=== PATIENT | male | born 1950 | race Caucasian/White ===

== ENCOUNTER 2021-08-17 17:39 | Inpatient (IN) | payer MEDICARE ==
[~2021-08-17] VITALS: Ht 172 cm; Wt 91.0 kg
--- NOTE | 2021-08-17 17:54 | ED General ---
General Chief Complaint: Respiratory Problems Stated Complaint: SOB Source of Information: Patient, EMS History of Present Illness Date Seen by Provider: Aug 17, 2021 Time Seen by Provider: 17:39 Initial Comments 70-year-old male presenting by EMS from home with complaints of feeling off balance when he tries to get up. He also has been more short of breath than usual. He has swelling in his legs which is new for him. He denies having fever or chills. He states he has not been coughing more than usual. He states that this is all been worsening in the last few days. He has not seen his primary care provider, Dr. Perkins, about any of the symptoms. Timing/Duration: 2-3 Days Severity: Moderate Modifying Factors: worse with Movement Associated Systoms: No Chest Pain, No Cough, No Diaphoresis, No Fever/Chills, No Headaches, No Loss of Appetite; Malaise; No Nausea/Vomiting, No Rash, No Seizure; Shortness of Air; No Syncope, No Weakness Allergies and Home Medications Allergies Coded Allergies: No Known Drug Allergies (Unverified , 10/22/17) Patient Home Medication List Home Medication List Reviewed: Yes Review of Systems Review of Systems Constitutional: No chills, No fever; malaise, weakness EENTM: no symptoms reported Respiratory: short of breath; No stridor, No wheezing Cardiovascular: see HPI; No chest pain; edema Gastrointestinal: no symptoms reported Genitourinary: decreased output Musculoskeletal: no symptoms reported Skin: No rash Psychiatric/Neurological: Weakness Hematologic/Lymphatic: Denies Blood Clots Past Vnauvwp-Xrrapo-Ulxfrq Hx Patient Social History Tobacco Use?: Yes Tobacco type used: Cigarettes Smoking Status: Current Everyday Smoker Use of E-Cig and/or Vaping dev: No Substance use?: No Alcohol Use?: No Past Medical History Surgery/Hospitalization HX: Hypertension, hypercholesterolemia, diabetes insulin-dependent, diverticulitis Surgeries: Yes Abdominal, Nephrectomy (1 kidney removed 2019 for renal cell carcinoma) Cancer: Yes Kidney Did You Recieve Any Treatments: Yes What Type of Treatment Did You: Surgical Intervention (Nephrectomy 2019) Physical Exam Vital Signs Vital Signs - First Documented 08/17/21 19:00 O2 Flow Rate 2.00 Capillary Refill : Height, Weight, BMI Height: 5'9.00" Weight: 206lbs. 0.0oz. 93.171927mv; 30.4 BMI Method: General Appearance: No Apparent Distress, Chronically ill HEENT: PERRL/EOMI, Pharynx Normal Neck: Full Range of Motion, Normal Inspection, Non Tender, Supple Respiratory: Chest Non Tender, No Accessory Muscle Use, No Respiratory Distress, Decreased Breath Sounds Cardiovascular: Regular Rate, Rhythm, Normal Peripheral Pulses Gastrointestinal: Normal Bowel Sounds, No Pulsatile Mass, Non Tender, Soft Rectal: Deferred Extremity: Normal Capillary Refill, No Calf Tenderness, Pedal Edema (1+ pitting edema to bilateral lower extremities up to his knees) Neurologic/Psychiatric: Alert, Oriented x3, reeler operator II-XII Norm as Tested Skin: Warm/Dry Focused Exam Lactate Level 08/17/21 18:50: Lactic Acid Level 1.02 Lactic Acid Level Laboratory Tests Test 08/17/21 18:50 Lactic Acid Level 1.02 MMOL/L (0.50-2.00) Progress/Results/Core Measures Suspected Sepsis SIRS Temperature: Pulse: Respiratory Rate: Laboratory Tests 08/17/21 17:43: White Blood Count 12.8H Blood Pressure / Mean: 08/17/21 18:50: Lactic Acid Level 1.02 Laboratory Tests 08/17/21 17:43: Creatinine 1.82H, INR Comment 1.1, Platelet Count 160, Total Bilirubin 0.4 08/17/21 19:25: Creatinine 1.78H Results/Orders Lab Results Laboratory Tests Test 08/17/21 17:43 08/17/21 18:50 08/17/21 19:25 Range/Units White Blood Count 12.8 H 4.3-11.0 10^3/uL Red Blood Count 5.12 4.30-5.52 10^6/uL Hemoglobin 15.4 13.3-17.7 g/dL Hematocrit 51 40-54 % Mean Corpuscular Volume 99 80-99 fL Mean Corpuscular Hemoglobin 30 25-34 pg Mean Corpuscular Hemoglobin Concent 30 L 32-36 g/dL Red Cell Distribution Width 13.7 10.0-14.5 % Platelet Count 160 130-400 10^3/uL Mean Platelet Volume 11.1 9.0-12.2 fL Immature Granulocyte % (Auto) 0 % Neutrophils (%) (Auto) 79 H 42-75 % Lymphocytes (%) (Auto) 11 L 12-44 % Monocytes (%) (Auto) 9 0-12 % Eosinophils (%) (Auto) 0 0-10 % Basophils (%) (Auto) 0 0-10 % Neutrophils # (Auto) 10.1 H 1.8-7.8 10^3/uL Lymphocytes # (Auto) 1.4 1.0-4.0 10^3/uL Monocytes # (Auto) 1.2 H 0.0-1.0 10^3/uL Eosinophils # (Auto) 0.0 0.0-0.3 10^3/uL Basophils # (Auto) 0.0 0.0-0.1 10^3/uL Immature Granulocyte # (Auto) 0.1 0.0-0.1 10^3/uL Prothrombin Time 14.6 12.2-14.7 SEC INR Comment 1.1 0.8-1.4 Activated Partial Thromboplast Time 30 24-35 SEC Sodium Level 143 143 135-145 MMOL/L Potassium Level 6.9 *H 6.7 *H 3.6-5.0 MMOL/L Chloride Level 108 H 107 98-107 MMOL/L Carbon Dioxide Level 26 26 21-32 MMOL/L Anion Gap 9 10 5-14 MMOL/L Blood Urea Nitrogen 52 H 49 H 7-18 MG/DL Creatinine 1.82 H 1.78 H 0.60-1.30 MG/DL Estimat Glomerular Filtration Rate 40 41 BUN/Creatinine Ratio 29 28 Glucose Level 153 H 126 H 70-105 MG/DL Calcium Level 8.5 8.7 8.5-10.1 MG/DL Corrected Calcium 8.7 8.5-10.1 MG/DL Magnesium Level 1.9 1.6-2.4 MG/DL Total Bilirubin 0.4 0.1-1.0 MG/DL Aspartate Amino Transf (AST/SGOT) 17 5-34 U/L Alanine Aminotransferase (ALT/SGPT) 20 0-55 U/L Alkaline Phosphatase 61 40-136 U/L Myoglobin 249.7 H 10.0-92.0 NG/ML Troponin I 0.44 *H <0.30 NG/ML Pro-B-Type Natriuretic Peptide 03731.0 H <75.0 PG/ML Total Protein 6.1 L 6.4-8.2 GM/DL Albumin 3.7 3.2-4.5 GM/DL Lipase 61 8-78 U/L Lactic Acid Level 1.02 0.50-2.00 MMOL/L My Orders Orders - SUMIT FINLEY MD Cbc With Automated Diff (08/17/21 17:50) Magnesium (08/17/21 17:50) Chest 1 View Ap/Pa Only (08/17/21 17:50) Ekg Tracing (08/17/21 17:50) Comprehensive Metabolic Panel (08/17/21 17:50) Myoglobin Serum (08/17/21 17:50) Protime With Inr (08/17/21 17:50) Partial Thromboplastin Time (08/17/21 17:50) O2 (08/17/21 17:50) Monitor-Rhythm Ecg Trace Only (08/17/21 17:50) Ed Iv/Invasive Line Start (08/17/21 17:50) Lipase (08/17/21 17:50) Troponin I Fs (08/17/21 17:50) Probnp Fs (08/17/21 17:50) Blood Culture (08/17/21 18:39) Basic Metabolic Panel (08/17/21 18:39) Lactic Acid Analyzer (08/17/21 18:39) Furosemide Injection (Lasix Injection) (08/17/21 18:39) Aspirin Chewable Tablet (Baby Aspirin Ch (08/17/21 18:39) Enoxaparin Injection (Lovenox Injection) (08/17/21 18:39) Ceftriaxone 1 Gm Pre-Mix (Rocephin 1 Gm (08/17/21 18:41) Azithromycin Tablet (Zithromax Tablet) (08/17/21 18:41) Furosemide Injection (Lasix Injection) (08/17/21 18:54) Vital Signs/I&O 08/17/21 08/17/21 08/17/21 08/17/21 17:50 17:50 19:00 19:15 Temp 36.7 Pulse 75 77 75 Resp 18 15 15 B/P (MAP) 146/73 (97) 161/75 111/75 Pulse Ox 91 93 94 O2 Delivery Nasal Cannula Nasal Cannula Nasal Cannula Nasal Cannula O2 Flow Rate 2.00 2.00 Capillary Refill : Progress Note #1: Progress Note Check basic labs and cardiac enzymes as well as chest x-ray and electrocardiogram. Evaluate for acute congestive heart failure, myocardial infarction, pneumonia, pleural effusion, lung mass. Progress Note #2: Progress Note Electrocardiogram has right bundle branch block and sinus rhythm but no acute ST elevation. There is no prior tracing for comparison. His chest x-ray shows a pleural effusion with infiltrate in the lung base. On his labs his white blood cell count was slightly elevated to 12.8 and his chemistry showed hyperkalemia up to 6.9, creatinine of 1.82, troponin of 0.44. Will check with the on-call provider for [facility] about admission and treatment for the renal insufficiency as well as hyperkalemia. The elevated troponin could be for a non-STEMI or it may be related to stress on his heart from the pleural effusion and infiltrate. Progress Note #3: Progress Note Discussed with Dr. Shetty for the [facility]. Will admit to the cardiac stepdown unit with orders for serial cardiac enzymes and consult of Dr. Flaherty with cardiology. We will try to recheck his metabolic profile since he had hemolysis on his potassium and is not showing signs of peaked T waves on his EKG. Since his chest x-ray showed infiltrate with effusion will cover with Rocephin and Zithromax for community-acquired pneumonia. Lactic acid was normal at 1. Discussed with Dr. Flaherty for cardiology and he recommended giving Lovenox as well as the aspirin. He also recommended patient get a echocardiogram on arrival to [facility]. Do serial troponins. When updating the patient about plan and results he asked about his toes. He stated that he had really bad long toenails that were really thick and yellow. When his feet were examined he did have erythematous rash to both feet consistent with a fungal infection of the skin as well as thickened onychomycotic toenails. Advised to have the patient check with the hospital once he is at [place] to see if they have podiatry or other services that kurtis mays help with his feet. ECG Initial ECG Impression Date: Aug 17, 2021 Initial ECG Impression Time: 18:05 Initial ECG Rate: 72 Initial ECG Rhythm: Normal Sinus Initial ECG Comparisson: No Previous ECG Available Comment Sinus rhythm with a heart rate of 72 bpm. Right axis deviation. Right bundle branch block. [place] interval 178 ms. QT interval 400 ms with a QTc interval 425 ms. There is no acute ST elevation. There is no prior tracing available for comparison. Diagnostic Imaging Diagonstic Imaging: Xray Plain Films/CT/US/NM/MRI: chest Comments [facility]. [place], [place] NAME: STEFANY GARCIA [facility] REC#: [id number] PT STATUS: REG ER : 1950 PHYSICIAN: SUMIT FINLEY MD ADMIT DATE: 08/17/21/ER FS Draft Date of Exam:08/17/21 CHEST 1 VIEW AP/PA ONLY INDICATION: Cough and shortness of breath. EXAMINATION: Chest, 08/17/2021. FINDINGS: There is a left pleural effusion. There is underlying atelectasis versus infiltrate. The heart is prominent. Pulmonary vasculature unremarkable. Left lung clear. IMPRESSION: 1. Right base infiltrate with adjacent pleural effusion. 2. Cardiomegaly. Dictated on workstation # [id number] Dict: 08/17/211801 Trans: 08/17/211804 [facility] [id number] Interpreted by: DARION FONTANEZ MD Electronically signed by: Reviewed: Reviewed by Me Departure Communication (Admissions) Time/Spoke to Admitting Phy: 18:[address] Shetty for the [facility] service. Admit to cardiac stepdown and do serial cardiac enzymes as well as consult Dr. Flaherty with cardiology. Time/Spoke to Consulting Phy: 18:[address] Flaherty from cardiology service. We will give Lovenox in addition to aspirin and obtain an echocardiogram on arrival to [place]. Lasix 80 mg IV x 1. Impression Primary Impression: Pleural effusion, right Additional Impressions: Right lower lobe pulmonary infiltrate Hyperkalemia Renal insufficiency Elevated troponin I level Onychomycosis Infection, fungal, right foot Infection, fungal, left foot Disposition: 30 STILL A PATIENT Condition: Stable (ERASED) Admissions Decision to Admit Reason: Admit from ER (General) Decision to Admit/Date: Aug 17, 2021 Time/Decision to Admit Time: 18:32 Departure-Patient Inst. Referrals: NO,LOCAL PHYSICIAN (PCP/Family) Primary Care Physician SUMIT FINLEY MD Aug 17, 2021 17:54
[2021-08-17 17:59] LABS: BASOPHILS % (AUTO) 0 % (0-10); EOSINOPHILS % (AUTO) 0 % (0-10); HEMATOCRIT 51 % (40-54); HEMOGLOBIN 15.4 g/dL (13.3-17.7); LYMPHOCYTES # (AUTO) 1.4 10^3/uL (1.0-4.0); LYMPHOCYTES % (AUTO) 11 % (12-44); MEAN CORPUSCULAR HEMOGLOBIN 30 pg (25-34); MEAN CORPUSCULAR HGB CONC 30 g/dL (32-36); MEAN CORPUSCULAR VOLUME 99 fL (80-99); MEAN PLATELET VOLUME 11.1 fL (9.0-12.2); MONOCYTES # (AUTO) 1.2 10^3/uL (0.0-1.0); MONOCYTES % (AUTO) 9 % (0-12); NEUTROPHILS # (AUTO) 10.1 10^3/uL (1.8-7.8); NEUTROPHILS % (AUTO) 79 % (42-75); PLATELET COUNT 160 10^3/uL (130-400); WHITE BLOOD COUNT 12.8 10^3/uL (4.3-11.0)
--- NOTE | 2021-08-17 18:05 | Diagnostic Imaging Report ---
INDICATION: Cough and shortness of breath. EXAMINATION: Chest, 08/17/2021. FINDINGS: There is a left pleural effusion. There is underlying atelectasis versus infiltrate. The heart is prominent. Pulmonary vasculature unremarkable. Left lung clear. IMPRESSION: 1. Right base infiltrate with adjacent pleural effusion. 2. Cardiomegaly. Dictated by: Dictated on workstation # [id number]
[2021-08-17 18:14] LABS: INR 1.1 (0.8-1.4); PROTHROMBIN TIME PATIENT 14.6 SEC (12.2-14.7)
[2021-08-17 18:16] LABS: CREATININE SERUM 1.82 MG/DL (0.60-1.30)
[2021-08-17 18:17] LABS: ALBUMIN 3.7 GM/DL (3.2-4.5); BILIRUBIN,TOTAL 0.4 MG/DL (0.1-1.0); CALCIUM 8.5 MG/DL (8.5-10.1); MAGNESIUM 1.9 MG/DL (1.6-2.4); TOTAL PROTEIN 6.1 GM/DL (6.4-8.2)
[2021-08-17 18:19] LABS: POTASSIUM 6.9 MMOL/L (3.6-5.0)
[2021-08-17] MEDS ORDERED: FUROSEMIDE 40 MG/4 ML INJ (LASIX) IVP STA (18:39)
[2021-08-17] MEDS ORDERED: ASPIRIN 81 MG CHEW (CHILDREN'S ASA) PO STA (18:39)
[2021-08-17] MEDS ORDERED: ENOXAPARIN 100 MG/1 ML (LOVENOX) SYR SC STA (18:39)
[2021-08-17] MEDS ORDERED: AZITHROMYCIN 250 MG TAB (ZITHROMAX) PO STA (18:41)
[2021-08-17] MEDS ORDERED: cefTRIAXone 1 GM PRE-MIX 50 ML IV STA (18:41)
[2021-08-17] MEDS ORDERED: FUROSEMIDE 40 MG/4 ML INJ (LASIX) ONE (18:54)
[2021-08-17 19:53] LABS: CALCIUM 8.7 MG/DL (8.5-10.1); CREATININE SERUM 1.78 MG/DL (0.60-1.30)
[2021-08-17 19:54] LABS: POTASSIUM 6.7 MMOL/L (3.6-5.0)
[2021-08-17 20:30] VITALS: BP 147/84
[2021-08-17 21:00] VITALS: BP 163/86
--- OUTSIDE RECORDS SUMMARY | 2021-08-17 21:33 | XMS REPORT | Clinical Summary ---
Author Author [facility] Organization [facility] Address Unknown Phone Unavailable Care Team Providers Care Associate Chemist Name Role Phone Self, Ricardo ESPOSITO PCP Kyler Asencio MD [phone] Source Comments Some departments are not documenting in the electronic medical record. If you d o not see the information that you expected, contact Release of Information in [facility] [employer] Information Management department at [phone] for further assistan ce in locating additional records.[facility] Allergies No known active allergies Medications End Date Status Medication Sig Dispensed Refills Start Date Active lovastatin(+) (MEVACOR) Take 20 mg by 0 20 mg tablet mouth at bedtime daily. Active lisinopril (PRINIVIL; Take 20 mg by 0 ZESTRIL) 20 mg tablet mouth every morning. Active aspirin EC 81 mg tablet Take 81 mg by 0 mouth daily. Take with food. Active polyethylene glycol 3350 Take 1 packet 12 each 3 (MIRALAX) 17 g packet by mouth 7 twice daily. Additional Information Patient taking differently: 17 g Oral TWO TIMES WEEKLY, Informant: Med List, Reported on 10/12/2017 Active lancets MISC Use 1 each as 300 each 11 directed four 7 times daily as needed. Diag: Diabetes mellitus type 2 Active insulin detemir(+) Inject 15 2 box 9 01 (LEVEMIR FLEXTOUCH) 100 Units under 7 unit/mL (3 mL) injection the skin at penIndications: type 2 bedtime diabetes mellitus daily. Indications: type 2 diabetes mellitus Additional Information Patient taking differently: 18 Units Subcutaneous AT BEDTIME DAILY, Indications: type 2 diabetes mellitus, Informant: Med List, Reported on 10/12/2017 Active insulin pen needles Use 1 each as 300 each 3 01/26 (disposable) (BD UF ELVA directed as 7 PEN NEEDLES) 32 gauge x Needed. Use " pen needle with insulin injections. Active pantoprazole DR Take 1 tablet 60 tablet 5 03/07/19 1 (PROTONIX) 40 mg tablet by mouth 8 twice daily. Take twice daily for 12 weeks then decrease to once daily. Additional Information Patient taking differently: 40 mg Oral DAILY, Take twice daily for 12 weeks then decrease to once daily., Informant: Med List, Reported on 10/12/2017 Active metFORMIN (GLUCOPHAGE) Take 1,000 mg 0 1,000 mg tablet by mouth twice daily with meals. Active traMADol (ULTRAM) 50 mg Take 100 mg 0 tablet by mouth 8 twice daily. Active ondansetron (ZOFRAN) 4 mg Take 1 tablet 4 tablet 0 tabletIndications: by mouth 8 Colostomy present ([facility]) every 4 hours as needed for Nausea or Vomiting. Active metoprolol XL (TOPROL XL) Take 25 mg by 0 25 mg extended release mouth daily. tablet Active oxyCODONE (ROXICODONE, Take one 40 tablet 0 OXY-IR) 5 mg tablet tablet to two 8 tablets by mouth every 6 hours as needed. Use in addition to Tylenol (acetaminophe n) for pain control and decrease use as pain improves. Active pantoprazole DR TAKE ONE 60 tablet 5 (PROTONIX) 40 mg tablet TABLET BY 8 MOUTH TWICE DAILY FOR 12 WEEKS THEN DECREASE TO ONCE DAILY Active Problems Problem Noted Date S/P colostomy takedown 10/30/2017 S/p nephrectomy 10/30/2017 Panlobular emphysema 10/30/2017 Current smoker 10/30/2017 History of home oxygen therapy 10/30/2017 Hypomagnesemia 10/30/2017 Colostomy present 10/01/2017 Overview: Formatting of this note might be differ ent from the original. Added automatically from request for prachi potts [id number] Gastric ulcer 03/08/2017 Overview: Formatting of this note might be differ ent from the original. Added automatically from request for prachi potts [id number] Acute respiratory failure with hypoxia 02/06/2017 Renal mass, right 01/28/2017 Overview: Formatting of this note might be differ ent from the original. Images from the original note were not included. 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 3.6 cm R anterior upper pole. CT CAP w/o evidence of metastatic disease. Creatinine wnl. Reviewed options as directed by guidelines above . -- 05/31/17: Stable right renal mass. He has not yet met with General Surgery -- 09/06/17: Ultrasound shows stable rig ht renal. He has had endoscopy in interim, but not met with General Surge ry. L ast Assessment & Plan: Formatting of this note might be differ ent from the original. Patient feels recovered from his colost anahi. His wound nearly completely healed. His renal mass is stable. Rev iewing old films, however, the mass is very endophytic. We discussed need for partial nephrectomy versus nephrectomy in the near future. Patien t agrees. We will need to determine general surgery plans and coordinate a surgery with them. -- Referral to Dr. Cervantes for determi nation of possibility of colostomy takedown -- Coordinate surgery with Dr. Cervantes for an open partial versus radical nephrectomy -- Make a [address] s can prior if Dr. Cervantes does not feel ready for colostomy takedown -- All questions answered HTN (hypertension) 01/28/2017 HLD (hyperlipidemia) 01/28/2017 Low back pain 01/28/2017 DDD (degenerative disc disease), cervical 01/28/2017 Gout 01/28/2017 DM (diabetes mellitus) 01/28/2017 Severe sepsis 01/28/2017 Lactic acidosis 01/28/2017 Abdominal pain 01/28/2017 Bowel wall thickening 01/28/2017 Overview: Formatting of this note might be differ ent from the original. Added automatically from request for prachi potts [id number] Pneumoperitoneum 01/28/2017 Overview: Formatting of this note might be differ ent from the original. Added automatically from request for prachi potts [id number] Intra-abdominal abscess 01/28/2017 Overview: Formatting of this note might be differ ent from the original. Added automatically from request for prachi potts [id number] Diverticulitis of colon with perforation 01/28/2017 Overview: Formatting of this note might be differ ent from the original. Added automatically from request for prachi potts [id number] PP (pneumoperitoneum) 01/28/2017 Overview: Formatting of this note might be differ ent from the original. Added automatically from request for prachi potts [id number] Resolved Problems Problem Noted Date Resolved Date Colostomy in place 10/01/2017 10/30/2017 Surgical History Surgery Date Site/Laterality Comments CERVICAL SPINE SURGERY disc removal FRACTURE SURGERY 02/26/1969 - Right arm 02/25/1970 ABDOMINAL EXPLORATION 10/30/2017 Abdomen/N/A EXPLORAT ORY LAPAROTOMY,LOW ANTERIOR RESECTION, SURGERY LYSIS OF ADHESIONS, FLEXIBL E SIGMOIDOSCOPY, MOBILIZATION OF SPLENIC FLEXURE, COLOS DI TAKEDOWN WITH COLECTOMY performed by Vikas Loera DO at [facility] OR/Periop Medical devices from this surgery are i n the Medical Devices section. NEPHRECTOMY 10/30/2017 Abdomen/Right RIGHT RADICAL NEPHRECTOMY performed by Kyler Asencio MD at [facility] OR/[facility] Medical devices from this surgery are i n the Medical Devices section. UPPER GASTROINTESTINAL 06/08/2017 N/A ESOPHAG OGASTRODUODENOSCOPY performed by KANDY Gao MD at ENDO/GI ABDOMINAL EXPLORATION 02/02/2017 N/A LAPAROTO MY EXPLORATORY, SIGMIOD COLECTOMY, OSTOMY SURGERY performed by Harshil Geiger MD at [facility] ABDOMINAL EXPLORATION 02/01/2017 Abdomen/N/A LAPAROTO MY EXPLORATORY, LYSIS OF ADHESIONS, REPAIR SURGERY OF COLOTOMY, NEGATIVE PRESS URE THERAPY performed by Kierra Stoll MD at [facility] UPPER GASTROINTESTINAL 01/31/2017 N/A ESOPHAG OGASTRODUODENOSCOPY performed by KANDY Bahena MD at ENDO/GI SIGMOIDOSCOPY 01/31/2017 N/A SIGMOIDOSCOPY B IOPSY performed by Reginald Bahena MD at [facility]O/GI UPPER GASTROINTESTINAL 01/31/2017 N/A ESOPHAG OGASTRODUODENOSCOPY BIOPSY performed by ENDOSCOPY Reginald Bahena MD at [facility] DO/GI Medical History Medical History Date Comments DM (diabetes mellitus) (HCC) HTN (hypertension) Gout Neuropathy feet Hyperlipidemia Diverticulitis Renal mass Arthritis hands, back Family History Medical History Relation Name Comments Stroke Brother Diabetes Mother Relation Name Status Comments Brother Alive Father Mother Social History Date Tobacco Use Types Packs/Day Years Used Quit: 01/28/2017 Current Every Day Smoker Cigarettes 0.5 45 Smokeless Tobacco: Snuff Current User Comments Alcohol Use Standard Drinks/Week No 0 (1 standard drink = 0.6 o z pure alcohol) Sex Assigned at Date Recorded Not on file Obstetrics History Last Filed Vital Signs Reading Time Taken Comments Vital Sign 170/80 12/17/2017 8:23 AM CDT Blood Pressure 73 12/17/2017 8:23 AM CDT Pulse 36.7 C (98 F) 12/17/2017 8:23 AM CDT Temperature 18 12/17/2017 8:23 AM CDT Respiratory Rate 96% 12/17/2017 8:23 AM CDT Oxygen Saturation - - Inhaled Oxygen Concentration 87.5 kg (193 lb) 12/17/2017 8:23 AM CDT Weight 175.3 cm (5' 9") 12/17/2017 8:23 AM CDT Height 28.5 12/17/2017 8:23 AM CDT Body Mass Index Plan of Treatment Health Maintenance Due Date Last Done Comments COVID-19 VACCINE (#1) 09/21/1956 DTAP/TDAP VACCINES (1 - 09/21/1969 Tdap) HEPATITIS C SCREENING 09/21/1969 PHYSICAL (COMPREHENSIVE) 09/21/1969 EXAM SHINGLES RECOMBINANT 09/21/2001 VACCINE (1 of 2) ABDOMINAL AORTIC ANEURYSM 09/21/2016 SCREENING PNEUMONIA (PPSV23) 09/21/2016 VACCINE (1 - PCV) INFLUENZA VACCINE 12/27/2021 01/31/2016 COLORECTAL CANCER 01/31/2027 01/31/2017 SCREENING Medical Devices Device Identifier Shelf Expiration Date Model / Serial / L ot Implanted Type Area Manufactur er 05/26/2020 5086-02 / [id number] / [id number] Barrier Adhesion 3x5in Procedure N/A: Abdomen GENZ YME Pack Bioresorbable Membrane - [id number] Implanted: Qty: 1 on 10/30/2017 by Vikas Cervantes DO at [facility] Results Not on filefrom Last 3 Months Advance Directives Patient [employer] [place] Explanation Type Date Recorded Advance 06/08/2017 10:00 AM Directive/DPOA Advance 02/12/2017 12:00 AM Directive/DPOA Date Inactivated Comments Code Status Date Activated 11/05/2017 7:21 PM Full Code 10/30/2017 3:24 PM Provider has discussed Code Status No, discussion no t w/Patient or Family? necessary based on Dx 02/12/2017 4:56 PM Full Code 01/28/2017 2:19 PM Provider has discussed Code Status Yes w/Patient or Family? Care Teams Start Date End Date Associate Chemist Relationship Specialty 01/30/17 SelfRicardo MD PCP - General Family Medicine 09/12/17 Kyler Asencio MD Attending MD Urology [address] [facility] [address] [place] [address]
[2021-08-17 21:58] LABS: CALCIUM 8.6 MG/DL (8.5-10.1)
[2021-08-17 22:00] VITALS: BP 128/66
[2021-08-17 22:02] LABS: CREATININE SERUM 1.9 MG/DL (0.60-1.30)
[2021-08-17 22:05] LABS: POTASSIUM 6.5 MMOL/L (3.6-5.0)
[2021-08-17] MEDS ORDERED: DEXTROSE 10% IV SOLUTION 1,000 ML IV SCH (22:15)
[2021-08-17] MEDS ORDERED: DEXTROSE 50% 50 ML (IMS) SYR IV ONE (22:15)
[2021-08-17] MEDS ORDERED: inSUlin (REGULAR) HUMAN 1 UNIT/0.01 ML (CHARGE PER UNIT) IV ONE (22:15)
[2021-08-17] MEDS ORDERED: ONDANSETRON 4 MG/2 ML (SDV) Z0FRAN IVP PRN (22:30)
[2021-08-17] MEDS ORDERED: CATHETER FLUSH 10 ML SYR IVP PRN (22:30)
[2021-08-17 23:00] VITALS: BP 130/77
[2021-08-18] VITALS (10 sets, daily range): BP systolic 115–139; BP diastolic 24–77
[2021-08-18 00:21] LABS: CALCIUM 8.3 MG/DL (8.5-10.1)
[2021-08-18 00:25] LABS: CREATININE SERUM 1.84 MG/DL (0.60-1.30)
[2021-08-18] MEDS ORDERED: RT-ALBUTEROL SULF 2.5 MG/3 ML PRE-MIX VIAL INH PRN (00:30)
[2021-08-18 05:11] LABS: CALCIUM 8.4 MG/DL (8.5-10.1)
[2021-08-18] MEDS: RT-ALBUTEROL SULF 2.5 MG/3 ML PRE-MIX VIAL INH SCH ×6 (05:12→23:28)
[2021-08-18 05:15] LABS: CREATININE SERUM 1.74 MG/DL (0.60-1.30)
[2021-08-18] MEDS: CATHETER FLUSH 10 ML SYR IVP SCH ×2 (05:26→15:28)
[2021-08-18 05:40] LABS: POTASSIUM 6.6 MMOL/L (3.6-5.0)
[2021-08-18] MEDS ORDERED: FUROSEMIDE 40 MG/4 ML INJ (LASIX) IVP ONE (05:45)
[2021-08-18] MEDS ORDERED: inSUlin (REGULAR) HUMAN 1 UNIT/0.01 ML (CHARGE PER UNIT) IV ONE (05:45)
[2021-08-18] MEDS ORDERED: DEXTROSE 10% IV SOLUTION 1,000 ML IV SCH (05:45)
[2021-08-18] MEDS ORDERED: DEXTROSE 50% 50 ML (IMS) SYR IV ONE (05:45)
[2021-08-18] MEDS ORDERED: SODIUM POLYSTYRENE POWDER 15 GM BOTTLE PO ONE (06:15)
[2021-08-18] MEDS: FUROSEMIDE 40 MG/4 ML INJ (LASIX) IVP SCH ×2 (06:43→17:58)
[2021-08-18 08:15] LABS: CALCIUM 8.5 MG/DL (8.5-10.1); CREATININE SERUM 1.61 MG/DL (0.60-1.30); POTASSIUM 6.1 MMOL/L (3.6-5.0)
--- NOTE | 2021-08-18 09:05 | Consultation-Cardiology ---
HPI-Cardiology Cardiology Consultation Date of Consultation 08/18/21 Date of Admission Time Seen by Provider: 08:00 Indication: Shortness of breath HPI 70-year-old gentleman with history of chronic renal insufficiency, hypertension, has been having unsteady gait and increasing shortness of breath and pedal edema which has been worsening. Patient reporting dyspnea on exertion which is progressive to the point that he is having dyspnea on doing basic daily activity. He denies any chest pain. No palpitation. No syncope or near syncopal episodes. Patient reported that he had history of nephrectomy and history of abdominal surgery in the past. Home Medications & Allergies Allergies: Coded Allergies: No Known Drug Allergies (Unverified , 10/22/17) Home Medication List Reviewed: Yes [id number]-Dvsrfz Hx Patient Social History Smoking Status: Current Everyday Smoker Have you traveled recently?: No Alcohol Use?: No Past Medical History Discussed below Family Medical History Family Medical Hx Noncontributory Review of Systems-General Review of Systems Constitutional: see HPI; No chills, No fever; malaise, weakness EENTM: see HPI, no symptoms reported Respiratory: see HPI; No cough; dyspnea on exertion; No hemoptysis; orthopnea; No phlegm; short of breath; No stridor, No wheezing, No other Cardiovascular: see HPI; No chest pain; edema; No Hx of Intervention, No palpitations, No syncope, No vascular heart diseas, No other Gastrointestinal: no symptoms reported, see HPI Genitourinary: see HPI, decreased output Musculoskeletal: no symptoms reported, see HPI Skin: see HPI; No rash Psychiatric/Neurological: See HPI, Weakness Reviewed Test Results Reviewed Test Results Lab Laboratory Tests Test 08/17/21 17:43 08/17/21 18:50 08/17/21 19:25 08/17/21 21:37 Range/Units White Blood Count 12.8 H 4.3-11.0 10^3/uL Red Blood Count 5.12 4.30-5.52 10^6/uL Hemoglobin 15.4 13.3-17.7 g/dL Hematocrit 51 40-54 % Mean Corpuscular Volume 99 80-99 fL Mean Corpuscular Hemoglobin 30 25-34 pg Mean Corpuscular Hemoglobin Concent 30 L 32-36 g/dL Red Cell Distribution Width 13.7 10.0-14.5 % Platelet Count 160 130-400 10^3/uL Mean Platelet Volume 11.1 9.0-12.2 fL Immature Granulocyte % (Auto) 0 % Neutrophils (%) (Auto) 79 H 42-75 % Lymphocytes (%) (Auto) 11 L 12-44 % Monocytes (%) (Auto) 9 0-12 % Eosinophils (%) (Auto) 0 0-10 % Basophils (%) (Auto) 0 0-10 % Neutrophils # (Auto) 10.1 H 1.8-7.8 10^3/uL Lymphocytes # (Auto) 1.4 1.0-4.0 10^3/uL Monocytes # (Auto) 1.2 H 0.0-1.0 10^3/uL Eosinophils # (Auto) 0.0 0.0-0.3 10^3/uL Basophils # (Auto) 0.0 0.0-0.1 10^3/uL Immature Granulocyte # (Auto) 0.1 0.0-0.1 10^3/uL Prothrombin Time 14.6 12.2-14.7 SEC INR Comment 1.1 0.8-1.4 Activated Partial Thromboplast Time 30 24-35 SEC Sodium Level 143 143 146 H 135-145 MMOL/L Potassium Level 6.9 *H 6.7 *H 6.5 *H 3.6-5.0 MMOL/L Chloride Level 108 H 107 107 98-107 MMOL/L Carbon Dioxide Level 26 26 27 21-32 MMOL/L Anion Gap 9 10 12 5-14 MMOL/L Blood Urea Nitrogen 52 H 49 H 49 H 7-18 MG/DL Creatinine 1.82 H 1.78 H 1.90 H 0.60-1.30 MG/DL Estimat Glomerular Filtration Rate 40 41 38 BUN/Creatinine Ratio 29 28 26 Glucose Level 153 H 126 H 121 H 70-105 MG/DL Calcium Level 8.5 8.7 8.6 8.5-10.1 MG/DL Corrected Calcium 8.7 8.5-10.1 MG/DL Magnesium Level 1.9 1.6-2.4 MG/DL Total Bilirubin 0.4 0.1-1.0 MG/DL Aspartate Amino Transf (AST/SGOT) 17 5-34 U/L Alanine Aminotransferase (ALT/SGPT) 20 0-55 U/L Alkaline Phosphatase 61 40-136 U/L Myoglobin 249.7 H 10.0-92.0 NG/ML Troponin I 0.44 *H 0.359 *H <0.028 NG/ML Pro-B-Type Natriuretic Peptide 29423.0 H <75.0 PG/ML Total Protein 6.1 L 6.4-8.2 GM/DL Albumin 3.7 3.2-4.5 GM/DL Lipase 61 8-78 U/L Lactic Acid Level 1.02 0.50-2.00 MMOL/L Test 08/17/21 22:02 08/17/21 23:16 08/17/21 23:48 08/18/21 00:03 Range/Units Glucometer 242 H 182 H 133 H 70-110 MG/DL Sodium Level 146 H 135-145 MMOL/L Potassium Level 6.0 H 3.6-5.0 MMOL/L Chloride Level 108 H 98-107 MMOL/L Carbon Dioxide Level 27 21-32 MMOL/L Anion Gap 11 5-14 MMOL/L Blood Urea Nitrogen 48 H 7-18 MG/DL Creatinine 1.84 H 0.60-1.30 MG/DL Estimat Glomerular Filtration Rate 39 BUN/Creatinine Ratio 26 Glucose Level 136 H 70-105 MG/DL Calcium Level 8.3 L 8.5-10.1 MG/DL Troponin I 0.322 *H <0.028 NG/ML Test 08/18/21 01:01 08/18/21 03:09 08/18/21 03:50 08/18/21 04:39 Range/Units Glucometer 127 H 145 H 127 H 70-110 MG/DL Sodium Level 147 H 135-145 MMOL/L Potassium Level 6.6 *H 3.6-5.0 MMOL/L Chloride Level 109 H 98-107 MMOL/L Carbon Dioxide Level 24 21-32 MMOL/L Anion Gap 14 5-14 MMOL/L Blood Urea Nitrogen 44 H 7-18 MG/DL Creatinine 1.74 H 0.60-1.30 MG/DL Estimat Glomerular Filtration Rate 42 BUN/Creatinine Ratio 25 Glucose Level 122 H 70-105 MG/DL Calcium Level 8.4 L 8.5-10.1 MG/DL Troponin I 0.259 H <0.028 NG/ML Triglycerides Level 98 <150 MG/DL Cholesterol Level 94 < 200 MG/DL LDL Cholesterol Direct 45 1-129 MG/DL VLDL Cholesterol 20 5-40 MG/DL HDL Cholesterol 28 L 40-60 MG/DL Test 08/18/21 05:28 08/18/21 06:04 08/18/21 06:59 08/18/21 07:39 Range/Units Glucometer 126 H 126 H 133 H 70-110 MG/DL Sodium Level 149 H 135-145 MMOL/L Potassium Level 6.1 H 3.6-5.0 MMOL/L Chloride Level 107 98-107 MMOL/L Carbon Dioxide Level 29 21-32 MMOL/L Anion Gap 13 5-14 MMOL/L Blood Urea Nitrogen 44 H 7-18 MG/DL Creatinine 1.61 H 0.60-1.30 MG/DL Estimat Glomerular Filtration Rate 46 BUN/Creatinine Ratio 27 Glucose Level 95 70-105 MG/DL Calcium Level 8.5 8.5-10.1 MG/DL B-Type Natriuretic Peptide 2178.7 H <100.0 PG/ML Physical Exam Physical Exam Vital Signs Vital Signs - First Documented 08/17/21 19:00 O2 Flow Rate 2.00 Capillary Refill : Less Than 3 Seconds Height, Weight, BMI Height: 5'9.00" Weight: 206lbs. 0.0oz. [id number]; 30.75 BMI Method: General Appearance: No Apparent Distress, Chronically ill HEENT: PERRL/EOMI, Pharynx Normal Neck: Full Range of Motion, Normal Inspection, Non Tender, Supple Respiratory: Chest Non Tender, No Accessory Muscle Use, No Respiratory Distress, Crackles, Decreased Breath Sounds Cardiovascular: Regular Rate, Rhythm, Normal Peripheral Pulses Gastrointestinal: Normal Bowel Sounds, No Pulsatile Mass, Non Tender, Soft Rectal: Deferred Extremity: Normal Capillary Refill, No Calf Tenderness, Pedal Edema (1+ pitting edema to bilateral lower extremities up to his knees) Neurologic/Psychiatric: Alert, Oriented x3, combination technician II-XII Norm as Tested Skin: Warm/Dry A/P-Cardiology Admission Diagnosis Congestive heart failure, acute left ventricular systolic dysfunction Hypertension Diabetes mellitus Acute renal insufficiency Assessment/Plan Congestive heart failure, acute left ventricular systolic dysfunction, unknown etiology. I will evaluate 2D echocardiogram, started on aggressive diuresis. Continue to monitor closely Hyperkalemia, probably secondary to renal insufficiency. Received Kayexalate, continue to monitor potassium level closely. Acute on chronic renal insufficiency and history of right nephrectomy due to kidney cancer Has been followed and managed by Dr. Perkins Hypertension, hold his blood pressure medication for now and monitor blood pressure. Avoid MARIANNE inhibitor and/or ARB Peripheral edema, secondary to heart failure, started on diuretics, monitor to lerance and response History of abdominal surgery, patient is not sure what type of surgery he had but it was done about 3 years ago. Diabetes mellitus, followed and managed by primary care physician Multiple risk factors for coronary artery disease, I am planning to evaluate Lexiscan stress test in the morning Lipid profile were normal on August 18, 2021. RAGINI MCKEON MD Aug 18, 2021 09:05
[2021-08-18] MEDS ORDERED: REGADENOSON 0.4 MG/5 ML SYR (LEXISCAN) IV ONE (09:15)
[2021-08-18] MEDS: ASPIRIN E.C. 81 MG (ECOTRIN) TAB PO SCH (10:05)
[2021-08-18 10:13] LABS: HEMOGLOBIN 15.9 g/dL (13.3-17.7); MEAN PLATELET VOLUME 10.7 fL (9.0-12.2); WHITE BLOOD COUNT 10.8 10^3/uL (4.3-11.0)
[2021-08-18] MEDS ORDERED: LOVA20TA2 PO (10:49)
[2021-08-18] MEDS ORDERED: INSU100I29 SC (10:49)
[2021-08-18] MEDS ORDERED: GABA-486 PO (10:49)
[2021-08-18] MEDS ORDERED: AMLO-250 PO (10:49)
[2021-08-18] MEDS ORDERED: TRAM50TA3 PO (10:49)
[2021-08-18] MEDS ORDERED: LISI20TA26 PO (10:50)
[2021-08-18] MEDS ORDERED: MTP100TCR PO (10:50)
[2021-08-18] MEDS ORDERED: ASPI-1238 PO (10:50)
[2021-08-18] MEDS ORDERED: METF-399 PO (10:50)
--- NOTE | 2021-08-18 11:09 | History & Physical ---
RODRIGUEZGUILLAUME 08/18/21 1109: History of Present Illness History of Present Illness Reason for visit/HPI 70 year old male presented to the ED via EMS and was admitted for acute heart failure and hyperkalemia. He was the primary historian but was oriented to person and place, not the time, and was poor historian at times. He reports diminished balance and increased shortness of breath for the last couple days. He denies recent falls associated with the diminished balance or history of heart failure although he does report being on water pills for swelling in his legs. He reports increased swelling in his legs in the past couple of days and pain in his feet. He has shortness of breath at rest that is worse with exertion. He reports being on 2l Oxygen at home for past few month but denies history of asthma or COPD. Dr. Perkins through [facility] is his PCP. Date of Admission Aug 17, 2021 at 20:21 Date Seen by a Provider: Aug 18, 2021 Time Seen by a Provider: 07:50 I consulted on this patient on 08/18/21 11:08 Attending Physician Ricardo Perkins MD Admitting Physician Admitting Physician: Demetrius Baker MD Attending Physician: Demetrius Baker MD Consult Allergies and Home Medications Allergies Coded Allergies: No Known Drug Allergies (Unverified , 10/22/17) Patient Home Medication List Amlodipine Besylate (Amlodipine Besylate) 5 Mg Tablet, 5 MG PO HS, (Reported) Entered as Reported by: MARIUM ANDRADE on 08/18/21 1049 Last Action: Reviewed Aspirin (Aspirin EC) 81 Mg Tablet.dr, 81 MG PO DAILY, (Reported) Entered as Reported by: MARIUM ANDRADE on 08/18/21 1050 Last Action: Reviewed Gabapentin (Gabapentin) 100 Mg Capsule, 100 MG PO BID, (Reported) Entered as Reported by: MARIUM ANDRADE on 08/18/21 1049 Last Action: Reviewed Insulin Detemir (Levemir Flextouch) 100 Unit/Ml (3 Ml) Insuln.pen, 18 UNITS SC HS, (Reported) Entered as Reported by: MARIUM ANDRADE on 08/18/21 1049 Last Action: Reviewed Lisinopril (Lisinopril) 20 Mg Tablet, 20 MG PO DAILY, (Reported) Entered as Reported by: MARIUM ANDRADE on 08/18/21 1050 Last Action: Reviewed Lovastatin (Lovastatin) 20 Mg Tablet, 20 MG PO HS, (Reported) Entered as Reported by: MARIUM ANDRADE on 08/18/21 104 Last Action: Reviewed Metformin HCl (Metformin HCl) 1,000 Mg Tablet, 1,000 MG PO BID, (Reported) Entered as Reported by: MARIUM ANDRADE on 08/18/21 105 Last Action: Reviewed Metoprolol Succinate (Metoprolol Succinate) 100 Mg Tab.er.24h, 100 MG PO DAILY, (Reported) Entered as Reported by: MARIUM ANDRADE on 08/18/21 105 Last Action: Reviewed Tramadol HCl (Tramadol HCl) 50 Mg Tablet, 100 MG PO BID PRN for PAIN-MODERATE (5-7), (Reported) Entered as Reported by: MARIUM ANDRADE on 08/18/21 104 Last Action: Reviewed Past Asvsuek-Hbgscv-Uconfl Hx Patient Social History Tobacco Use?: Yes Tobacco type used: Cigarettes Smoking Status: Current Everyday Smoker Use of E-Cig and/or Vaping dev: No Substance use?: No Alcohol Use?: No Pt feels they are or have been: No Current Status Primary Language: Slovak Preferred Spoken Language: Slovak Is interpretation needed?: No Past Medical History Surgeries: Abdominal, Nephrectomy (1 kidney removed 2019 for renal cell carcinoma) Diverticulosis Kidney Did You Recieve Any Treatments: Yes What Type of Treatment Did You: Surgical Intervention (Nephrectomy 2019) Family Medical History No Pertinent Family Hx (Patient was adopted and is unclear of biological parents PMH) Review of Systems Constitutional: chills, weakness EENTM: No hearing loss, No vision loss, No throat pain Respiratory: No cough; dyspnea on exertion, short of breath Cardiovascular: No chest pain, No palpitations Gastrointestinal: No abdominal pain, No diarrhea, No nausea, No vomiting Genitourinary: No dysuria, No hematuria Musculoskeletal: No back pain, No muscle pain, No neck pain; other (Reports that his toes have been hurting him.) Skin: No change in color, No rash Psychiatric/Neurological: Denies Headache, Denies Numbness; Other (feels unsteady when walking) Physical Exam Vital Signs Vital Signs - First Documented 08/17/21 19:00 O2 Flow Rate 2.00 Capillary Refill : Less Than 3 Seconds Height, Weight, BMI Height: 5'9.00" Weight: 206lbs. 0.0oz. 93.107135yh; 30.75 BMI Method: General Appearance: WD/WN, Other (patient seemed confused at times and would fall asleep as I was trying to ask him questions.) HEENT: PERRL/EOMI, Pharynx Normal Neck: Non Tender, Supple Respiratory: No Accessory Muscle Use, No Respiratory Distress, Rhonci (mild); No Wheezing Cardiovascular: Regular Rate, Rhythm, No Murmur, Normal Peripheral Pulses, Other (Minimal pittind edema in legs. ) Gastrointestinal: Normal Bowel Sounds, Non Tender, Soft, Other (large scar on abdomen from previous surgeries.) Back: Normal Inspection, No Vertebral Tenderness Extremity: Non Tender, No Calf Tenderness, Other Neurologic/Psychiatric: No Motor/Sensory Deficits, campus receptionist II-XII Norm as Tested, Disoriented (disoriented to date. had difficulties answering quesions.) Skin: Ecchymosis (on back of both hands. ), Other (red erythema with scaling of skin arround edges on dorsum of foot and between the toes bilaterally. Worse on the left.) Lymphatic: No Adenopathy Assessment/Plan Assessment and Plan Hyperkalemia -Likely secondary to impaired renal function and Home Lisinopril. No evidence of EKG abnormalities as of this time. Will give SQ Insulin, Dextrose, and albuterol. If potassium continues to climb or patient begins to have ekg abnormalites will start calcium gluconate or dialysis. Heart Failure of unknown ejection fraction -Patient has pitting pedel edema and elevated Pro-BNP and BNP. Lasix have been initiated and Cardiology has been consulted. Elevated Troponin -May be secondary to acute Heart failure. Doesn't appear to be signs of ND at this anish. Will consult Cardiology. DANIEL -Baseline Creatinine appears to be in the 1.2's per review of [facility] records. His Creatinine was as high as 1.9 last night but had already improved to 1.6 with morning labs. likely due to poor perfusion secondary to intravascular volume depletion secondary to CHF. Lasix appears to be helping and will continue. Chronic Renal Insufficiency -Likely contributing to patients presentation currently. Monitor for now. Lasix so far are helping kidney function. History of right nephrectomy due to ranal cancer -likely a factor of chronic renal insufficency. nothing to do at this time. Tinea Pedis -Will consider nystatin powder and educate on importance of feet hygeine. Will recommend patient follow up with PCP for this. Pneumonia -Chest x ray yesterday showed Right base infiltrate with adjacent PE. Will start patient on Azithromycin and ceftriaxone for community acquired pneumonia coverage at this time. If PE worsens or fails to resolve may consult surgery for chest tube evaluation. Leukocytosis -Likely secondary to pneumonia as well as stress from heart failure exacerbation. rather mild currently. will trend and watch closely. DEMETRIUS BAKER MD 08/18/212116: History of Present Illness History of Present Illness Time Seen by a Provider: 09:20 Allergies and Home Medications Allergies Coded Allergies: No Known Drug Allergies (Unverified , 10/22/17) Patient Home Medication List Home Medication List Reviewed: Yes Amlodipine Besylate (Amlodipine Besylate) 5 Mg Tablet, 5 MG PO HS, (Reported) Entered as Reported by: MARIUM ANDRADE on 08/18/211048 Last Action: Reviewed Aspirin (Aspirin EC) 81 Mg Tablet.dr, 81 MG PO DAILY, (Reported) Entered as Reported by: MARIUM ANDRADE on 08/18/211049 Last Action: Reviewed Gabapentin (Gabapentin) 100 Mg Capsule, 100 MG PO BID, (Reported) Entered as Reported by: MARIUM ANDRADE on 08/18/211048 Last Action: Reviewed Insulin Detemir (Levemir Flextouch) 100 Unit/Ml (3 Ml) Insuln.pen, 18 UNITS SC HS, (Reported) Entered as Reported by: MARIUM ANDRADE on 08/18/211048 Last Action: Reviewed Lisinopril (Lisinopril) 20 Mg Tablet, 20 MG PO DAILY, (Reported) Entered as Reported by: MARIUM ANDRADE on 08/18/21 105 Last Action: Reviewed Lovastatin (Lovastatin) 20 Mg Tablet, 20 MG PO HS, (Reported) Entered as Reported by: MARIUM ANDRADE on 08/18/211048 Last Action: Reviewed Metformin HCl (Metformin HCl) 1,000 Mg Tablet, 1,000 MG PO BID, (Reported) Entered as Reported by: MARIUM ANDRADE on 08/18/211049 Last Action: Reviewed Metoprolol Succinate (Metoprolol Succinate) 100 Mg Tab.er.24h, 100 MG PO DAILY, (Reported) Entered as Reported by: MARIUM ANDRADE on 08/18/21 1050 Last Action: Reviewed Tramadol HCl (Tramadol HCl) 50 Mg Tablet, 100 MG PO BID PRN for PAIN-MODERATE (5-7), (Reported) Entered as Reported by: MARIUM ANDRADE on 08/18/21 1049 Last Action: Reviewed Physical Exam General Appearance: No Apparent Distress, Other (falling asleep at times between questions and answer) Eyes: Bilateral Eye EOMI HEENT: PERRL/EOMI, Pharynx Normal Respiratory: Rhonci Cardiovascular: Regular Rate, Rhythm, No Murmur Gastrointestinal: Normal Bowel Sounds, Non Tender, Soft Extremity: Pedal Edema (1+ pitting edema) Neurologic/Psychiatric: campus receptionist II-XII Norm as Tested; No Abnormal Cerebellar Tests; Disoriented (oriented to self and location but not date); No Motor Weak ness Skin: Other (erythematous scaling over distal toes and feet bilaterally, petechiae over dorsum of both hands and forearms (he reports secondary to hitting on the door at a restaraunt)) Assessment/Plan Admission Diagnosis Admission Status: Inpatient Order (span 2 midnights) Reason for Inpatient Admission: Severe hyperkalemia with DANIEL Supervisory-Addendum Brief Verification & Attestation Participated in pt care: history, MDM, physical Personally performed: exam, history, MDM, supervision of care Care discussed with: Medical Student Procedures: n/a I personally saw patient and did my own history which matched that documented by the medical student. I did my own physical exam as documented. I directed the plan of care. Suspect pulmonary effusion related to pneumonia, monitor. Discussed if potassium not persistently improving, may need to consider transfer for dialysis which he stated he would be open to if needed. GUILLAUME RODRIGUEZ Aug 18, 2021 11:09 DEMETRIUS BAKER MD Aug 18, 2021 21:17
[2021-08-18 14:48] LABS: CALCIUM 8.2 MG/DL (8.5-10.1); CREATININE SERUM 1.56 MG/DL (0.60-1.30); POTASSIUM 5.8 MMOL/L (3.6-5.0)
[2021-08-18 16:53] LABS: POTASSIUM 5.5 MMOL/L (3.6-5.0)
[2021-08-18 16:59] LABS: CREATININE SERUM 1.45 MG/DL (0.60-1.30)
[2021-08-18] MEDS: cefTRIAXone 1 GM IV (PRE-MIX) 50 ML IV SCH (17:59)
[2021-08-18] MEDS: AZITHROMYCIN 250 MG TAB (ZITHROMAX) PO SCH (17:59)
[2021-08-19] VITALS (17 sets, daily range): BP systolic 105–142; BP diastolic 67–91
[2021-08-19] MEDS: CATHETER FLUSH 10 ML SYR IVP SCH ×4 (00:44→21:20)
[2021-08-19] MEDS: AtorvaSTATin TABLET 10 MG TABLET PO SCH ×2 (00:44→21:18)
[2021-08-19] MEDS: RT-ALBUTEROL SULF 2.5 MG/3 ML PRE-MIX VIAL INH SCH ×6 (02:34→22:28)
[2021-08-19 05:12] LABS: HEMATOCRIT 56 % (40-54); MEAN CORPUSCULAR HEMOGLOBIN 30 pg (25-34); MEAN CORPUSCULAR HGB CONC 29 g/dL (32-36); MEAN CORPUSCULAR VOLUME 103 fL (80-99); PLATELET COUNT 149 10^3/uL (130-400); WHITE BLOOD COUNT 11.2 10^3/uL (4.3-11.0)
[2021-08-19 05:27] LABS: POTASSIUM 4.8 MMOL/L (3.6-5.0)
[2021-08-19 05:28] LABS: CALCIUM 8.2 MG/DL (8.5-10.1)
[2021-08-19 05:33] LABS: CREATININE SERUM 1.38 MG/DL (0.60-1.30)
[2021-08-19] MEDS ORDERED: REGADENOSON 0.4 MG/5 ML SYR (LEXISCAN) IV ONE (07:55)
[2021-08-19] MEDS ORDERED: ENOXAPARIN 40 MG/0.4 ML (LOVENOX) SYR SQ SCH (09:00)
[2021-08-19] MEDS: FUROSEMIDE 40 MG/4 ML INJ (LASIX) IVP SCH ×2 (09:55→18:07)
[2021-08-19] MEDS: D5W 1000 ML IV SOLUTION 1,000 ML IV SCH ×2 (09:57→18:12)
[2021-08-19] MEDS: GABAPENTIN 100 MG (NEURONTIN) CAP PO SCH ×2 (10:01→21:19)
[2021-08-19] MEDS: meTOprolol SUCCINATE 100 MG (TOPROL XL) TAB PO SCH (10:01)
[2021-08-19] MEDS: ASPIRIN E.C. 81 MG (ECOTRIN) TAB PO SCH (10:01)
[2021-08-19] MEDS: ENOXAPARIN 40 MG/0.4 ML (LOVENOX) SYR SQ SCH (10:07)
--- NOTE | 2021-08-19 10:21 | Cardiology Stress Test Report ---
Stress Test Report Date of Procedure/Referring: Date of Procedure: Aug 19, 2021 PCP Ricardo Perkins MD Admitting Physician Admitting Physician: Usha Shetty MD Attending Physician: Usha Shetty MD Indications: Congestive heart failure Baseline Heart Rate: 86 Baseline Blood Pressure: Blood Pressure Systolic: 131 Blood Pressure Diastolic: 67 Baseline Vitals Vital Signs Date Time Temp Pulse Resp B/P (MAP) Pulse Ox O2 Delivery O2 Flow Rate FiO2 08/17/21 17:50 36.7 75 18 146/73 (97) 91 Nasal Cannula 08/17/21 19:00 2.00 Baseline EKG: Baseline EKG: NSR, PVCs Summary After explaining the procedure to the patient, he signed a consent and then brought to the stress nuclear laboratory. Patient received 0.4 mg Lexiscan for stress test, ECG, heart rate and blood pressure were monitored continuously. Resting and stress dose of radio tracer were injected, imaging was acquired and reviewed in short axis, horizontal long axis and vertical long axis views. TID: 1.01 SSS: 3 SDS: 0 EF: 25 1. Patient tolerated Lexiscan well, frequent PVCs and ventricular bigeminy persisted during test 2. Diaphragmatic attenuation with decreased uptake involving the whole inferior wall with mild reversibility noted at the basal to mid inferior wall and inferolateral wall 3. Prominent left ventricle with diffuse left ventricular hypokinesia, ejection fraction 25% RAGINI MCKEON MD Aug 19, 2021 10:20
[2021-08-19] MEDS: inSUlin ASPART (NovoLOG) 1 UNIT/0.01 ML (CHARGE PER UNIT) SC SCH ×3 (10:47→21:19)
--- NOTE | 2021-08-19 11:19 | Progress Note ---
GUILLAUME RODRIGUEZ 08/19/21 1119: Subjective Date Seen by a Provider: Aug 19, 2021 Time Seen by a Provider: 10:45 Subjective/Events-last exam Patient was sitting in bed eating food with his son and grandson present when seen today. He reports feeling significantly better than yesterday and is more alert and oriented today. He has a good appetite this morning and reports urinating and defecating well. He had a nuclear stress test today by cardiology after having echo performed yesterday showing EF of 40-45%. His hyperkalemia has improved from 6.1 to 4.8. He does have hypernatremia at this time of 149. Review of Systems General: No Chills; Fatigue Pulmonary: Dyspnea (mild. improved since yesterday); No Cough Cardiovascular: No: Chest Pain, Palpitations Gastrointestinal: No: Nausea, Vomiting Focused Exam Lactate Level 08/17/21 18:50: Lactic Acid Level 1.02 Objective Exam Last Set of Vital Signs Vital Signs Date Time Temp Pulse Resp B/P (MAP) Pulse Ox O2 Delivery O2 Flow Rate FiO2 08/19/21 10:30 36.8 08/19/21 10:16 93 Nasal Cannula 5.00 08/19/21 09:45 79 15 138/86 (103) Capillary Refill : Less Than 3 Seconds I&O Intake and Output 08/19/21 00:00 Intake Total 800 ml Output Total 2450 ml Balance -1650 ml Intake Oral 800 ml Output Urine Total 2450 ml # Voids 4 # Urine Diapers 4 General: Alert, Oriented X3 Lungs: Clear to Auscultation Heart: Regular Rate, No Murmurs Extremities: Other (minimal edema in legs. improved since yesterday.) Skin: No Rashes, No Significant Lesion Neuro: Normal Speech Psych/Mental Status: Mental Status NL (significantly improved since yesterday.) Results Lab Laboratory Tests 08/18/21 12:08: Glucometer 195H 08/18/21 14:11: Glucometer 249H 08/18/21 14:30: Sodium Level 147H, Potassium Level 5.8H, Chloride Level 102, Carbon Dioxide Level 35H, Anion Gap 10, Blood Urea Nitrogen 40H, Creatinine 1.56H, Estimat Glomerular Filtration Rate 48, BUN/Creatinine Ratio 26, Glucose Level 238H, Calcium Level 8.2L 08/18/21 15:19: Glucometer 205H 08/18/21 16:30: Sodium Level 146H, Potassium Level 5.5H, Chloride Level 102, Carbon Dioxide Level 34H, Anion Gap 10, Blood Urea Nitrogen 38H, Creatinine 1.45H, Estimat Glomerular Filtration Rate 52, BUN/Creatinine Ratio 26, Glucose Level 197H, Calcium Level 8.0L 08/19/21 00:42: Glucometer 136H 08/19/21 04:52: Sodium Level 149H, Potassium Level 4.8, Chloride Level 101, Carbon Dioxide Level 34H, Anion Gap 14, Blood Urea Nitrogen 32H, Creatinine 1.38H, Estimat Glomerular Filtration Rate 55, BUN/Creatinine Ratio 23, Glucose Level 147H, Calcium Level 8.2L, White Blood Count 11.2H, Red Blood Count 5.39, Hemoglobin 16.0, Hematocrit 56H, Mean Corpuscular Volume 103H, Mean Corpuscular Hemoglobin 30, Mean Corpuscular Hemoglobin Concent 29L, Red Cell Distribution Width 13.7, Platelet Count 149, Mean Platelet Volume 11.0 08/19/21 10:25: Glucometer 141H Microbiology 08/17/21 Blood Culture - Preliminary, Resulted No growth Assessment/Plan Assessment/Plan Assess & Plan/Chief Complaint Hyperkalemia -improved to 4.8 today. Still believe it was Likely secondary to impaired renal function and Home Lisinopril. No evidence of EKG abnormalities.SQ Insulin, Dextrose, and albuterol was given for hyperkalemia and patient continues to be on SQ insulin at this time. Monitor for now. Heart Failure with 40-45% EF -Patient had elevated BNP and Pro-BNP upon admission as well as significant pedal edema. The pedal edema is improving and he went to have a stress test today with cardiology. Elevated Troponin -May be secondary to acute Heart failure. Cardiology has been consulted and is directing work up at this time. DANIEL -Baseline Creatinine appears to be in the 1.2's per review of [facility] records. His Creatinine was has been as high as 1.9 but is down to 1.38 today. The original DANIEL was likely due to poor perfusion secondary to intravascular volume depletion secondary to CHF. Lasix appears to be helping and will continue. Chronic Renal Insufficiency -Likely contributed to patients presentation. Monitor for now. Lasix so far are helping kidney function. History of right nephrectomy due to renal cancer -likely a factor of chronic renal insufficency. Tinea Pedis -Will consider nystatin powder and educate on importance of feet hygiene. Will recommend patient follow up with PCP for this. Pneumonia -Chest x ray yesterday showed Right base infiltrate with adjacent PE and he was started on azithromycin and ceftriaxone for CAP. He had increased oxygen requirements last night up to 8L O2 but has improved to only needing 3L 02 when seen by us today. Leukocytosis -Increased from 10.8 to 11.2 today. Likely secondary to pneumonia as well as stress from heart failure exacerbation. Will continue to trend and watch closely. Clinical Quality Measures Admission Status Admission Dx Hyperkalemia -Likely secondary to impaired renal function and Home Lisinopril. No evidence of EKG abnormalities as of this time. Will give SQ Insulin, Dextrose, and albuterol. If potassium continues to climb or patient begins to have ekg abnor malites will start calcium gluconate or dialysis. Heart Failure of unknown ejection fraction -Patient has pitting pedel edema and elevated Pro-BNP and BNP. Lasix have been initiated and Cardiology has been consulted. Elevated Troponin -May be secondary to acute Heart failure. Doesn't appear to be signs of MO at this anish. Will consult Cardiology. DANIEL -Baseline Creatinine appears to be in the 1.2's per review of [facility] records. His Creatinine was as high as 1.9 last night but had already improved to 1.6 with morning labs. likely due to poor perfusion secondary to intravascular volume depletion secondary to CHF. Lasix appears to be helping and will continue. Chronic Renal Insufficiency -Likely contributing to patients presentation currently. Monitor for now. Lasix so far are helping kidney function. History of right nephrectomy due to ranal cancer -likely a factor of chronic renal insufficency. nothing to do at this time. Tinea Pedis -Will consider nystatin powder and educate on importance of feet hygeine. Will recommend patient follow up with PCP for this. Pneumonia -Chest x ray yesterday showed Right base infiltrate with adjacent PE. Will start patient on Azithromycin and ceftriaxone for community acquired pneumonia coverage at this time. If PE worsens or fails to resolve may consult surgery for chest tube evaluation. Leukocytosis -Likely secondary to pneumonia as well as stress from heart failure exacerbation. rather mild currently. will trend and watch closely. DEMETRIUS SHETTY MD 08/19/21 1234: Supervisory-Addendum Brief Verification & Attestation Participated in pt care: history, MDM, physical Personally performed: exam, history, MDM, supervision of care Care discussed with: Medical Student Procedures: n/a Verification and Attestation of Medical Student E/M Service I reviewed and verified all information documented by the medical student and made modifications to such information, when appropriate. I personally performed the history, physical exam and medical decision making. Demetrius Shetty, Aug 19, 2021,12:34 GUILLAUME RODRIGUEZ Aug 19, 2021 11:19 DEMETRIUS SHETTY MD Aug 19, 2021 12:34
[2021-08-19 11:47] LABS: POTASSIUM 4.8 MMOL/L (3.6-5.0)
[2021-08-19] MEDS ORDERED: LIDOCAINE 1% INJ 20 ML VIAL ONE (11:47)
[2021-08-19] MEDS ORDERED: HEParin (CATH LAB) 2,000 ML IV ONE (11:47)
[2021-08-19] MEDS ORDERED: NS IV 1000 ML 0 ML ONE (11:47)
[2021-08-19 11:48] LABS: CALCIUM 8.2 MG/DL (8.5-10.1)
[2021-08-19] MEDS ORDERED: fentaNYL INJ 100 MCG/2 ML AMP ONE (11:50)
[2021-08-19] MEDS ORDERED: VERAPAMIL 5 MG/2 ML (CALAN) VIAL IV ONE (11:50)
[2021-08-19] MEDS ORDERED: NITRO DRIP 25000 MCG/D5W 250 ML IV ONE (11:50)
[2021-08-19] MEDS ORDERED: HEParin 1000 UNIT/ML (10ML VIAL) FOR BOLUS ONE (11:50)
[2021-08-19] MEDS ORDERED: MIDAZOLAM 5 MG/5 ML (VERSED) VIAL ONE (11:50)
[2021-08-19 11:53] LABS: CREATININE SERUM 1.26 MG/DL (0.60-1.30)
[2021-08-19] MEDS ORDERED: ASPIRIN 325 MG (5 GR) TABLET ONE (12:57)
[2021-08-19] MEDS ORDERED: CLOPIDOGREL 300 MG (PLAVIX) TABLET PO ONE (12:59)
--- NOTE | 2021-08-19 12:59 | Conscious Sedation/ASA ---
Conscious Sedation Pre-Proced Time 12:59 ASA Score 3 For ASA 3 and 4: Consider anesthesia and medical clearance. Also, for patients with a history of failed moderate sedation consider anesthesia. Airway Lungs Heart ASA score ASA 1: a normal healthy patient ASA 2: a patient with a mild systemic disease (mid diabetes, controlled hypertension, obesity x ASA 3: a patient with a severe systemic disease that limits activity (angina, COPD, prior Myocardial infarction) ASA 4: a patient with an incapacitating disease that is a constant threat to life (CHF, renal failure) ASA 5: a moribund patient not expected to survive 24 hrs. (ruptured aneurysm) ASA 6: a declared brain- patient whose organs are being harvested. For emergent operations, add the letter E after the classification Mallampati Classification Grade 3 Sedation Plan Analgesia, Amnesia, Plan communicated to team members, Discussed options with patient/fam, Discussed risks with patient/fam The patient is an appropriate candidate to undergo the planned procedure, sedation, and anesthesia. The patient immediately re-assessed prior to indication. RAGINI MCKEON MD Aug 19, 2021 12:59
[2021-08-19] MEDS ORDERED: PATIENT MAY USE OWN MEDS, ALL PO SCH (13:00)
--- NOTE | 2021-08-19 15:27 | Cardiac Cath Report ---
Cardiac Cath Report Physician (s)/Electroplating Sales Representative (s) Physician RAGINI MCKEON MD Pre-Procedure Diagnosis Pre-Procedure Diagnosis: Coronary artery disease Post-Procedure Note Procedure Start Date: Aug 19, 2021 Procedure Start Time: 15:23 Name of Procedure: Left heart catheterization Primary stenting of the LAD Findings/Procedure Note PROCEDURE NOTE: 70 years old gentleman with hypertension, chronic renal insufficiency, admitted with congestive heart failure. Has severe cardiomyopathy. Stress test was abnormal, scheduled for cardiac catheterization. After explaining the procedure to the patient, all pros and cons were explained, all questions were answered. The patient signed the consent and then he was placed on the cardiac catheterization laboratory. Groin was prepped SL fashion local anesthesia was used. Sheath placed in the right femoral artery. Jayy right and left catheter were used to access the coronary system. Jayy right catheter prolapsed to the left ventricular cavity, pressure was measured no left ventriculogram was done. Pullback LV to aorta was done. Patient received 5000 units of heparin, I attempted to access the left coronary system with the EBU 3.5 without success, used EBU 4.0 and it was successful, advanced a BMW wire to the distal LAD. Patient has 80% stenosis in the mid LAD, primary stenting using chance point 3.5 x 18 mm expanded to 3.7 mm with excellent results. Patient has severe stenosis in proximal diagonal artery that persisted there. Did not change. Has subtotal occlusion at the distal right PDA that will be staged to a later point due to his renal insufficiency At the end of the procedure the sheath was removed. Closure device was deployed FINDINGS: Hemodynamics LV 129/14, end-diastolic pressure 14 Aorta 150/80 mean of 69 ANATOMY: Left Main is free of obstructive disease Left Anterior Descending has severe stenosis 80% stenosis in the midportion successful primary stenting using chance point 3.5 x 18 mm expanded to 3.7 mm with excellent results. First diagonal artery is moderate in size with 60 to 70% ostial/proximal stenosis that will be monitored. Left Circumflex is moderate in size with nonobstructive disease Right Coronary Artery is dominant artery with subtotal occlusion at the distal right PDA which will be staged at a later point LV Gram was not done, pressure was measured CONCLUSION: 1. Severe stenosis at the mid LAD with successful primary stenting using chance point 3.5 x 18 mm expanded to 3.7 mm with excellent results. The proximal portion of the LAD is slightly aneurysmal which will be monitored. 2. 60 to 70% stenosis at the ostial/proximal first diagonal artery that will be monitored 3. Subtotal occlusion in the mid right PDA which will be staged for intervention at a later point due to the renal insufficiency 4. Normal left ventricular end-diastolic pressure DISCUSSION AND RECOMMENDATION: Continue to maximize medical therapy and monitor tolerance and response Anesthesia Type: Conscious Sedation Estimated blood loss (mL): 25 ml Contrast Amount: 67 ml Total Radiation Dose: 555 mGy Post-Procedure Diagnosis Post-operative diagnosis: Coronary artery disease Congestive heart failure, acute left ventricular systolic dysfunction, ischemic cardiomyopathy Hypertension Hyperlipidemia RAGINI MCKEON MD Aug 19, 2021 15:27
[2021-08-19] MEDS: NS IV 1000 ML 1,000 ML IV SCH (16:37)
[2021-08-19] MEDS: AZITHROMYCIN 250 MG TAB (ZITHROMAX) PO SCH (18:07)
[2021-08-19] MEDS: cefTRIAXone 1 GM IV (PRE-MIX) 50 ML IV SCH (18:08)
[2021-08-20] VITALS (13 sets, daily range): BP systolic 104–151; BP diastolic 64–99
[2021-08-20] MEDS: NS IV 1000 ML 1,000 ML IV SCH ×3 (02:12→19:01)
[2021-08-20] MEDS: D5W 1000 ML IV SOLUTION 1,000 ML IV SCH ×3 (02:12→17:57)
[2021-08-20] MEDS: RT-ALBUTEROL SULF 2.5 MG/3 ML PRE-MIX VIAL INH SCH ×6 (02:38→22:32)
[2021-08-20 05:19] LABS: HEMATOCRIT 54 % (40-54); HEMOGLOBIN 16.1 g/dL (13.3-17.7); MEAN CORPUSCULAR HEMOGLOBIN 30 pg (25-34); MEAN CORPUSCULAR HGB CONC 30 g/dL (32-36); MEAN CORPUSCULAR VOLUME 100 fL (80-99); MEAN PLATELET VOLUME 10.9 fL (9.0-12.2); PLATELET COUNT 151 10^3/uL (130-400); WHITE BLOOD COUNT 12.4 10^3/uL (4.3-11.0)
[2021-08-20 05:28] LABS: POTASSIUM 4.4 MMOL/L (3.6-5.0)
[2021-08-20 05:29] LABS: CALCIUM 8.1 MG/DL (8.5-10.1)
[2021-08-20 05:33] LABS: CREATININE SERUM 1.17 MG/DL (0.60-1.30)
--- NOTE | 2021-08-20 06:02 | Progress Note - Hospitalist ---
Subjective HPI/CC On Admission Date Seen by Provider: Aug 20, 2021 Time Seen by Provider: 10:00 Subjective/Events-last exam Patient is hungry Awaiting cardiac catheterization procedure by Dr. Flaherty Family at the bedside Unsure of disposition at this point Labs reviewed Review of Systems General: Fatigue, Malaise Focused Exam Lactate Level Objective Exam Vital Signs Vital Signs Date Time Temp Pulse Resp B/P (MAP) Pulse Ox O2 Delivery O2 Flow Rate FiO2 08/21/21 04:00 75 10 100/65 (77) Nasal Cannula 7.00 08/21/21 02:35 93 08/20/21 19:34 36.8 Capillary Refill : Less Than 3 Seconds General Appearance: No Apparent Distress, WD/WN, Chronically ill Respiratory: Lungs Clear, Normal Breath Sounds Cardiovascular: Regular Rate, Rhythm Neurologic/Psychiatric: Alert, Oriented x3, No Motor/Sensory Deficits, Normal Mood/Affect Results/Procedures Lab Patient resulted labs reviewed. Assessment/Plan Assessment and Plan Assess & Plan/Chief Complaint Assessment: CHF Elevated troponin Acute kidney injury Previous hypokalemia Pneumonia Solo kidney History of renal cell carcinoma CAD previous intervention yesterday Plan: Repeat cardiac cath with intervention Monitor kidney function JOSEPH HUTCHISON DO Aug 20, 2021 06:02
[2021-08-20] MEDS: inSUlin ASPART (NovoLOG) 1 UNIT/0.01 ML (CHARGE PER UNIT) SC SCH ×4 (06:03→21:18)
[2021-08-20] MEDS: CATHETER FLUSH 10 ML SYR IVP SCH ×3 (06:03→21:19)
[2021-08-20] MEDS: ASPIRIN E.C. 81 MG (ECOTRIN) TAB PO SCH (08:37)
[2021-08-20] MEDS: CLOPIDOGREL 75 MG (PLAVIX) TABLET PO SCH (08:39)
[2021-08-20] MEDS ORDERED: ASPIRIN E.C. 81 MG (ECOTRIN) TAB PO SCH (09:00)
[2021-08-20] MEDS: GABAPENTIN 100 MG (NEURONTIN) CAP PO SCH ×2 (11:20→21:17)
[2021-08-20] MEDS: FUROSEMIDE 40 MG/4 ML INJ (LASIX) IVP SCH ×2 (11:20→18:52)
[2021-08-20] MEDS: meTOprolol SUCCINATE 100 MG (TOPROL XL) TAB PO SCH (11:20)
[2021-08-20] MEDS: ENOXAPARIN 40 MG/0.4 ML (LOVENOX) SYR SQ SCH (11:21)
--- NOTE | 2021-08-20 13:44 | Cardiology Progress Note ---
Subjective Date Seen by Provider: Aug 20, 2021 Time Seen by Provider: 13:40 Subjective/Events-last exam Patient was seen at bedside, laying down comfortably, feeling better. No new complaint Review of Systems General: No Chills, No Night Sweats, No Fatigue, No Malaise, No Appetite, No Other HEENT: No Head Aches, No Visual Changes, No Eye Pain, No Ear Pain, No Dysph aleks, No Sinus Congestion, No Post Nasal Drip, No Sore Throat, No Other Pulmonary: No Dyspnea, No Cough, No Pleuritic Chest Pain, No Other Cardiovascular: No: Chest Pain, Palpitations, Orthopnea, Paroxysmal Noc. Dyspnea, Edema, Lt Headedness, Other Focused Exam Lactate Level 08/17/21 18:50: Lactic Acid Level 1.02 Objective-Cardiology Exam Last Set of Vital Signs Vital Signs 08/20/21 08/20/21 08/20/21 09:00 12:00 12:52 Temp 36.0 Pulse 77 Resp 16 B/P (MAP) 125/86 (99) Pulse Ox 95 O2 Delivery High Flow N/C O2 Flow Rate 5.00 I&O Intake and Output 08/19/21 23:59 Intake Total 2520 ml Output Total 2075 ml Balance 445 ml Intake Oral 1520 ml IV Total 1000 ml Output Urine Total 2075 ml # Voids 1 General: Alert, Oriented X3 HEENT: Atraumatic, PERRLA Neck: Supple, No JVD Lungs: Clear to Auscultation Heart: Regular Rate, Normal S1, Normal S2, No Murmurs Abdomen: Normal Bowel Sounds, Soft Extremities: No Clubbing, No Cyanosis, Other (minimal edema in legs. improved since yesterday.) Skin: No Rashes, No Significant Lesion Neuro: Normal Speech, Strength at 5/5 X4 Ext Psych/Mental Status: Mental Status NL (significantly improved since yesterday.) Results Lab Laboratory Tests 08/20/21 05:08 A/P-Cardiology Admission Diagnosis Congestive heart failure, acute left ventricular systolic dysfunction Hypertension Diabetes mellitus Acute renal insufficiency Assessment/Plan Congestive heart failure, acute left ventricular systolic dysfunction, ischemic cardiomyopathy. Clinically improving. Currently on metoprolol 100 mg daily Avoid MARIANNE inhibitor and/or ARB due to renal insufficiency and hyperkalemia Coronary artery disease, cardiac catheterization was done on August 19, 2021 showing severe stenosis in the mid LAD with successful angioplasty and stenting, moderate to severe stenosis at the ostial and proximal diagonal artery treated c onservatively, subtotal occlusion at the PDA with abnormal stress test in the inferior wall. I am planning to proceed with intervention on the right PDA. Acute on chronic renal insufficiency and history of right nephrectomy due to kidney cancer Has been followed and managed by Dr. Perkins Hypertension, hold his blood pressure medication for now and monitor blood pressure. Avoid MARIANNE inhibitor and/or ARB Peripheral edema, secondary to heart failure, started on diuretics, monitor tolerance and response History of abdominal surgery, patient is not sure what type of surgery he had but it was done about 3 years ago. Diabetes mellitus, followed and managed by primary care physician Multiple risk factors for coronary artery disease, I am planning to evaluate Lexiscan stress test in the morning Lipid profile were normal on August 18, 2021. RAGINI MCKEON MD Aug 20, 2021 13:44
[2021-08-20] MEDS ORDERED: MIDAZOLAM 5 MG/5 ML (VERSED) VIAL ONE (15:01)
[2021-08-20] MEDS ORDERED: fentaNYL INJ 100 MCG/2 ML AMP ONE ×2 (15:01→15:38)
[2021-08-20] MEDS ORDERED: LIDOCAINE 1% INJ 20 ML VIAL ONE (15:02)
[2021-08-20] MEDS ORDERED: HEParin 1000 UNIT/ML (10ML VIAL) FOR BOLUS ONE (15:02)
[2021-08-20] MEDS ORDERED: NITRO DRIP 25000 MCG/D5W 250 ML IV ONE (15:02)
[2021-08-20] MEDS ORDERED: NS IV 1000 ML 1,000 ML ONE (15:02)
[2021-08-20] MEDS ORDERED: HEParin (CATH LAB) 2,000 ML IV ONE (15:07)
[2021-08-20] MEDS ORDERED: MIDAZOLAM 2 MG/2 ML (VERSED) VIAL ONE (15:39)
[2021-08-20] MEDS ORDERED: PATIENT MAY USE OWN MEDS, ALL PO SCH (16:00)
[2021-08-20] MEDS ORDERED: NS IV 1000 ML 1,000 ML IV SCH (16:00)
--- NOTE | 2021-08-20 16:01 | Cardiac Cath Report ---
Cardiac Cath Report Physician (s)/Puzzle Assembler (s) Physician RAGINI MCKEON MD Pre-Procedure Diagnosis Pre-Procedure Diagnosis: Coronary artery disease Post-Procedure Note Procedure Start Date: Aug 20, 2021 Name of Procedure: PTCA to the right coronary artery Findings/Procedure Note PROCEDURE NOTE: 70-year-old gentleman with coronary artery disease, had percutaneous intervention and stenting to the LAD on 08/19/2021, has severe stenosis at the distal right PDA that was staged for later point. After discussion with the patient decided to proceed with the procedure today and limit the amount of contrast exposure as much as possible. After explaining the procedure to the patient, all pros and cons were explained, all questions were answered. The patient signed the consent and then he was placed on the cardiac catheterization laboratory. Groin was prepped SL fashion local anesthesia was used. Sheath placed in the right femoral artery, Jayy right guide was advanced to the right coronary artery, whisper medium support was advanced. I had difficulty advancing the wire distally I used mini trek 2 x 20 mm balloon as supporting balloon for leg wire and I was able to advance it distally. I did multiple inflation to atmosphere then 4 hugh then 8 hugh angiogram showed minimal improvement in the subtotal occlusion in the small branches of the distal right coronary artery, I decided to stop the procedure due to the fact the of the arteries are fairly small and I feel that the benefit is very limited. At the end of the procedure the sheath was removed. Closure device was deployed FINDINGS: Successful balloon angioplasty to the distal right posterior descending artery, the artery is subtotally occluded, slight improvement with the use of mini trek 2 x 20 mm balloon. CONCLUSION: 1. Balloon angioplasty to the distal right PDA with slight improvement of the subtotal occlusion. 2. Otherwise no complication noted DISCUSSION AND RECOMMENDATION: Continue to maximize medical therapy Anesthesia Type: Conscious Sedation Estimated blood loss (mL): 10 ml Contrast Amount: 18 ml` Total Radiation Dose: 694 mGy Post-Procedure Diagnosis Post-operative diagnosis: Coronary artery disease Congestive heart failure Hypertension Hyperlipidemia RAGINI MCKEON MD Aug 20, 2021 16:01
[2021-08-20] MEDS: cefTRIAXone 1 GM IV (PRE-MIX) 50 ML IV SCH (18:26)
[2021-08-20] MEDS: AZITHROMYCIN 250 MG TAB (ZITHROMAX) PO SCH (18:26)
[2021-08-20] MEDS: AtorvaSTATin TABLET 10 MG TABLET PO SCH (21:17)
[2021-08-20] MEDS ORDERED: MELATONIN 10 MG TABLET PO PRN (21:45)
[2021-08-21] VITALS: BP 126/86
[2021-08-21] MEDS: RT-ALBUTEROL SULF 2.5 MG/3 ML PRE-MIX VIAL INH SCH ×4 (02:35→15:51)
[2021-08-21 04:00] VITALS: BP 100/65
[2021-08-21 06:50] LABS: BASOPHILS # (AUTO) 0.1 10^3/uL (0.0-0.1); BASOPHILS % (AUTO) 0 % (0-10); EOSINOPHILS # (AUTO) 0.3 10^3/uL (0.0-0.3); EOSINOPHILS % (AUTO) 2 % (0-10); HEMATOCRIT 58 % (40-54); HEMOGLOBIN 17.3 g/dL (13.3-17.7); LYMPHOCYTES # (AUTO) 1.9 10^3/uL (1.0-4.0); LYMPHOCYTES % (AUTO) 13 % (12-44); MEAN CORPUSCULAR HEMOGLOBIN 30 pg (25-34); MEAN CORPUSCULAR HGB CONC 30 g/dL (32-36); MEAN CORPUSCULAR VOLUME 99 fL (80-99); MEAN PLATELET VOLUME 10.4 fL (9.0-12.2); MONOCYTES # (AUTO) 1.4 10^3/uL (0.0-1.0); MONOCYTES % (AUTO) 10 % (0-12); NEUTROPHILS % (AUTO) 75 % (42-75); PLATELET COUNT 152 10^3/uL (130-400); WHITE BLOOD COUNT 14.7 10^3/uL (4.3-11.0)
[2021-08-21] MEDS: CATHETER FLUSH 10 ML SYR IVP SCH (07:00)
[2021-08-21 07:14] LABS: POTASSIUM 4.7 MMOL/L (3.6-5.0)
[2021-08-21 07:15] LABS: ALBUMIN 3.7 GM/DL (3.2-4.5); BILIRUBIN,TOTAL 1.3 MG/DL (0.1-1.0); CALCIUM 8.7 MG/DL (8.5-10.1); CREATININE SERUM 1.19 MG/DL (0.60-1.30); TOTAL PROTEIN 6.9 GM/DL (6.4-8.2)
--- NOTE | 2021-08-21 07:21 | Progress Note - Hospitalist ---
Subjective HPI/CC On Admission Date Seen by Provider: Aug 21, 2021 Time Seen by Provider: 10:30 Objective Exam Vital Signs Vital Signs Date Time Temp Pulse Resp B/P (MAP) Pulse Ox O2 Delivery O2 Flow Rate FiO2 08/21/21 09:25 95 High Flow N/C 5.00 08/21/21 08:02 36.1 81 16 116/84 (95) Capillary Refill : Less Than 3 Seconds Results/Procedures Lab Laboratory Tests 08/21/21 06:43 Patient resulted labs reviewed. Assessment/Plan Assessment and Plan Assess & Plan/Chief Complaint Assessment: CHF Elevated troponin Acute kidney injury Previous hypokalemia Pneumonia Solo kidney History of renal cell carcinoma CAD previous intervention yesterday Plan: Repeat cardiac cath with intervention Monitor kidney function JOSEPH HUTCHISON DO Aug 21, 2021 07:21
[2021-08-21 08:02] VITALS: BP 116/84
[2021-08-21] MEDS: inSUlin ASPART (NovoLOG) 1 UNIT/0.01 ML (CHARGE PER UNIT) SC SCH ×2 (08:17→11:12)
[2021-08-21] MEDS: FUROSEMIDE 40 MG/4 ML INJ (LASIX) IVP SCH (08:46)
[2021-08-21] MEDS: ENOXAPARIN 40 MG/0.4 ML (LOVENOX) SYR SQ SCH (08:46)
[2021-08-21] MEDS: meTOprolol SUCCINATE 100 MG (TOPROL XL) TAB PO SCH (08:47)
[2021-08-21] MEDS: CLOPIDOGREL 75 MG (PLAVIX) TABLET PO SCH (08:47)
[2021-08-21] MEDS: ASPIRIN E.C. 81 MG (ECOTRIN) TAB PO SCH (08:47)
[2021-08-21] MEDS: GABAPENTIN 100 MG (NEURONTIN) CAP PO SCH (08:47)
[2021-08-21] MEDS ORDERED: METF-399 PO (09:28)
[2021-08-21] MEDS ORDERED: CLOP75TA28 PO (09:28)
--- NOTE | 2021-08-21 09:29 | Discharge Inst-Post CATH ---
Discharge Inst-CATH/EP Problems Reviewed?: Yes Post Cardiac Cath/EP D/C Inst Follow Up/Plan Hold metformin for [address] Flaherty's office in 2 to 4 weeks <b>CARDIAC CATH/EP PROCEDURE DISCHARGE INSTRUCTIONS</b> ACTIVITY * Go Home directly and rest. * Limit activity of the leg (or wrist if it was used) for 7 days including aerobics, swimming, jogging, bicycling, etc. * Restrict stair-climbing for 7 days if possible, if not, climb up with your non-cath leg, then bring together on the same step. * Avoid lifting, pushing, pulling or excessive movement of the affected extremity for 7 days. * Customary sexual activity may be resumed after 2 days-use caution not to use a position that strains or causes pain to the affected extremity. * No driving for 24 hours. * NO SMOKING. * Avoid straining for bowel movements for 7 days. * Gentle walking on level ground is allowed. * Returning to work will depend on the type of procedure and the results. Your doctor will discuss this with you. CALL YOUR DOCTOR FOR ANY OF THE FOLLOWING: *If bleeding from the puncture site occurs- Apply gentle pressure to site with clean cloth and call your doctor or EMS. * If a knot or lump forms under the skin, increases in size, or causes pain. * If bruising appears to be worsening or moving further down your leg instead of disappearing. * Temperature above 101 F. CARE OF YOUR GROIN INCISION; * Bruising or purple discoloration of the skin near the puncture site is common. * You may shower only, no bathtub bathing for 5 days. Be careful to avoid slipping as your leg may feel stiff. * If a closure device was used on your femoral artery, please see the attached guide regarding care of the device and your leg. * Leave dressing on FOR 24 hours. CARE OF YOUR WRIST INCISION; * Bruising or purple discoloration of the skin near the puncture site is common. * You may shower. * DO NOT submerge wrist. * Leave dressing on FOR 24 hours. RAGINI FLAHERTY MD Aug 21, 2021 09:29
--- NOTE | 2021-08-21 09:30 | Cardiology Progress Note ---
Subjective Date Seen by Provider: Aug 21, 2021 Time Seen by Provider: 09:29 Subjective/Events-last exam Patient was seen at bedside, laying down comfortably in bed Reporting that he is feeling better. No chest pain was reported Dyspnea is better Review of Systems General: No Chills, No Night Sweats, No Fatigue, No Malaise, No Appetite, No Other HEENT: No Head Aches, No Visual Changes, No Eye Pain, No Ear Pain, No Dysphasia, No Sinus Congestion, No Post Nasal Drip, No Sore Throat, No Other Pulmonary: No Dyspnea, No Cough, No Pleuritic Chest Pain, No Other Cardiovascular: No: Chest Pain, Palpitations, Orthopnea, Paroxysmal Noc. Dyspnea, Edema, Lt Headedness, Other Objective-Cardiology Exam Last Set of Vital Signs Vital Signs 08/21/21 08/21/21 08:02 09:25 Temp 36.1 Pulse 81 Resp 16 B/P (MAP) 116/84 (95) Pulse Ox 95 O2 Delivery High Flow N/C O2 Flow Rate 5.00 I&O Intake and Output 08/21/21 00:00 Intake Total 1760 ml Output Total 4330 ml Balance -2570 ml Intake Oral 1760 ml Output Urine Total 4330 ml General: Alert, Oriented X3 HEENT: Atraumatic, PERRLA Neck: Supple, No JVD Lungs: Clear to Auscultation Heart: Regular Rate, Normal S1, Normal S2, No Murmurs Abdomen: Normal Bowel Sounds, Soft Extremities: No Clubbing, No Cyanosis, Other (minimal edema in legs. improved since yesterday.) Skin: No Rashes, No Significant Lesion Neuro: Normal Speech, Strength at 5/5 X4 Ext Psych/Mental Status: Mental Status NL (significantly improved since yesterday.) Results Lab Laboratory Tests 08/21/21 06:43 A/P-Cardiology Admission Diagnosis Congestive heart failure, acute left ventricular systolic dysfunction Hypertension Diabetes mellitus Acute renal insufficiency Assessment/Plan Congestive heart failure, acute left ventricular systolic dysfunction, ischemic cardiomyopathy. Clinically improving. Currently on metoprolol 100 mg daily Avoid MARIANNE inhibitor and/or ARB due to renal insufficiency and hyperkalemia Coronary artery disease, cardiac catheterization was done on August 19, 2021 showing severe stenosis in the mid LAD with successful angioplasty and stenting, moderate to severe stenosis at the ostial and proximal diagonal artery treated conservatively, subtotal occlusion at the PDA with abnormal stress test in the inferior wall. Cardiac catheterization was done again on August 20, 2021 with balloon angioplasty to the distal right PDA, mild improvement. The artery is fairly small and distal. Conservative management is recommended Acute on chronic renal insufficiency and history of right nephrectomy due to kidney cancer Has been followed and managed by Dr. Perkins Hypertension, hold his blood pressure medication for now and monitor blood pressure. Avoid MARIANNE inhibitor and/or ARB Peripheral edema, secondary to heart failure, started on diuretics, monitor tolerance and response History of abdominal surgery, patient is not sure what type of surgery he had but it was done about 3 years ago. Diabetes mellitus, followed and managed by primary care physician Multiple risk factors for coronary artery disease, I am planning to evaluate Lexiscan stress test in the morning Lipid profile were normal on August 18, 2021. RAGINI MCKEON MD Aug 21, 2021 09:30
[2021-08-21] MEDS ORDERED: HYDROcodone/APAP 5 MG/325 MG (LORTAB) TAB PO PRN (11:15)
--- NOTE | 2021-08-21 11:16 | Discharge Summary ---
Discharge Summary Hospital Course Was the Problem List Reviewed?: Yes Problems/Dx: (1) Right lower lobe pulmonary infiltrate Status: Acute (2) Elevated troponin I level Status: Acute (3) Pleural effusion, right Status: Acute (4) Renal insufficiency Status: Acute (5) Hyperkalemia Status: Acute Hospital Course Date of Admission: Aug 17, 2021 at 20:21 Admission Diagnosis : Family Physician/Provider: Ricardo Perkins MD Date of Discharge: 08/21/21 Discharge Diagnosis: PNA, effusion, DANIEL, Hyperkalemia, CAD s/p stents placed this stay, chronic O2 supplement Hospital Course: Hospital course: Patient had a very complicated 5-day hospital course when he was admitted for congestive heart failure with hyperkalemia. He was given IV fluids and medications to decrease the potassium level and improve kidney function. He did undergo cardiac catheterization and a two-stage procedure with intervention. He completed his antibiotics while hospitalized and he had good i mprovement in overall status he did require 2 L of oxygen continuously at 3 L on exertion that order was placed at time of discharge. He declined any type of home health or physical therapy. Labs and Pending Lab Test: Laboratory Tests 08/20/21 16:40: Glucometer 137H 08/20/21 20:46: Glucometer 250H 08/21/21 06:43: White Blood Count 14.7H, Red Blood Count 5.79H, Hemoglobin 17.3, Hematocrit 58H, Mean Corpuscular Volume 99, Mean Corpuscular Hemoglobin 30, Mean Corpuscular Hemoglobin Concent 30L, Red Cell Distribution Width 13.8, Platelet Count 152, Mean Platelet Volume 10.4, Immature Granulocyte % (Auto) 0, Neutrophils (%) (Auto) 75, Lymphocytes (%) (Auto) 13, Monocytes (%) (Auto) 10, Eosinophils (%) (Auto) 2, Basophils (%) (Auto) 0, Neutrophils # (Auto) 11.0H, Lymphocytes # (Auto) 1.9, Monocytes # (Auto) 1.4H, Eosinophils # (Auto) 0.3, Basophils # (Auto) 0.1, Immature Granulocyte # (Auto) 0.1, Sodium Level 143, Potassium Level 4.7, Chloride Level 93L, Carbon Dioxide Level 32, Anion Gap 18H, Blood Urea Nitrogen 20H, Creatinine 1.19, Estimat Glomerular Filtration Rate 66, BUN/Creatinine Ratio 17, Glucose Level 97, Calcium Level 8.7, Corrected Calcium 8.9, Total Bilirubin 1.3H, Aspartate Amino Transf (AST/SGOT) 16, Alanine Aminotransferase (ALT/SGPT) 19, Alkaline Phosphatase 55, Total Protein 6.9, Albumin 3.7 08/21/21 10:18: Glucometer 145H Microbiology 08/17/21 Blood Culture - Preliminary, Resulted No growth Home Meds Active Clopidogrel (Clopidogrel Bisulfate) 75 Mg Tablet 75 Mg PO DAILY Metformin HCl 1,000 Mg Tablet 1,000 Mg PO BID Hold metformin for 48 hours Reported Aspirin EC (Aspirin) 81 Mg Tablet.dr 81 Mg PO DAILY Metoprolol Succinate 100 Mg Tab.er.24h 100 Mg PO DAILY Lisinopril 20 Mg Tablet 20 Mg PO DAILY Amlodipine Besylate 5 Mg Tablet 5 Mg PO HS Lovastatin 20 Mg Tablet 20 Mg PO HS Tramadol HCl 50 Mg Tablet 100 Mg PO BID PRN Levemir Flextouch (Insulin Detemir) 100 Unit/Ml (3 Ml) Insuln.pen 18 Units SC HS Gabapentin 100 Mg Capsule 100 Mg PO BID Assessment/Pt Instructions PCP 1 week Discharge Planning: <30 minutes discharge planning Discharge Instructions Discharge Diet: Cardiac Diet Discharge Physical Examination Vital Signs Vital Signs Date Time Temp Pulse Resp B/P (MAP) Pulse Ox O2 Delivery O2 Flow Rate FiO2 08/21/21 09:25 95 High Flow N/C 5.00 08/21/21 08:02 36.1 81 16 116/84 (95) General Appearance: No Apparent Distress, WD/WN, Chronically ill Respiratory: Lungs Clear, Normal Breath Sounds Neurologic/Psychiatric: Alert, Oriented x3, No Motor/Sensory Deficits, Normal Mood/Affect Allergies: Coded Allergies: No Known Drug Allergies (Unverified , 10/22/17) Discharge Summary Date of Admission Aug 17, 2021 at 20:21 Date of Discharge Discharge Date: Aug 21, 2021 Discharge Diagnosis Assessment: CHF Elevated troponin Acute kidney injury Previous hypokalemia Pneumonia Solo kidney History of renal cell carcinoma CAD previous intervention yesterday Plan: Repeat cardiac cath with intervention Monitor kidney function JOSEPH HUTCHISON DO Aug 21, 2021 11:16
[2021-08-21 12:00] VITALS: BP 105/71
== END 2021-08-21 16:28 | disposition home or self-care (01) | DRG 246 ==
LOC: EDUNIT# 17:39 → ER FS 17:40 → CSD 20:21 → ER FS 20:21 → CSD 20:21
PROVIDERS: ADMIT Family Medicine; ATTEND Internal Medicine
PROC: 027034Z Dilation of Coronary Artery, One Artery with Drug-eluting Intraluminal Device, Percutaneous Approach (ICD-10-PCS; principal; 2021-08-19)
PROC: 4A023N7 Measurement of Cardiac Sampling and Pressure, Left Heart, Percutaneous Approach (ICD-10-PCS; 2021-08-19)
PROC: B2111ZZ Fluoroscopy of Multiple Coronary Arteries using Low Osmolar Contrast (ICD-10-PCS; 2021-08-19)
PROC: 02703ZZ Dilation of Coronary Artery, One Artery, Percutaneous Approach (ICD-10-PCS; 2021-08-20)
DX: I13.0 Hypertensive heart and chronic kidney disease with heart failure and stage 1 through stage 4 chronic kidney disease, or unspecified chronic kidney disease (principal); I50.21 Acute systolic (congestive) heart failure; J18.9 Pneumonia, unspecified organism; E11.22 Type 2 diabetes mellitus with diabetic chronic kidney disease; N18.9 Chronic kidney disease, unspecified; I25.5 Ischemic cardiomyopathy; I25.10 Atherosclerotic heart disease of native coronary artery without angina pectoris; E78.00 Pure hypercholesterolemia, unspecified; I45.10 Unspecified right bundle-branch block; E87.5 Hyperkalemia; B35.3 Tinea pedis; B35.1 Tinea unguium; F17.210 Nicotine dependence, cigarettes, uncomplicated; N28.9 Disorder of kidney and ureter, unspecified; I49.3 Ventricular premature depolarization; Z79.4 Long term (current) use of insulin; Z79.84 Long term (current) use of oral hypoglycemic drugs; Z90.5 Acquired absence of kidney; Z85.528 Personal history of other malignant neoplasm of kidney; Z79.82 Long term (current) use of aspirin
CPT/HCPCS: 36415; 71045; 78452; 80048; 80053; 80061; 82947; 83605; 83690; 83735; 83874; 83880; 83935; 84484; 85025; 85027; 85610; 85730; 87040; 93005; 93017; 93306; 93458; 94640; 94664; 94761